=== PATIENT | male | born 1995 | race African-American/Black ===

== ENCOUNTER → 2025-03-03 15:49 | Outpatient (CLI) | payer OTHER, SELFPAY ==
--- NOTE | 2025-03-03 15:54 | DI.MRI.S_ITS ---
PROCEDURE: MR HIP RT W CON INDICATIONS: chronic rt hip pain TECHNIQUE: After the administration of 10 mL of dilute intra-articular Gadolinium contrast, coronal STIR of the bony pelvis; coronal and oblique axial T1 spin echo with fat saturation, axial T2 fast spin echo with fat saturation, sagittal T1 spin echo with and without fat saturation of the involved hip. COMPARISON: None. FINDINGS: Image quality: Diagnostic. Right Hip (small FOV): Intact articular surfaces. Mild increased signal within the superior labrum at 12 o'clock without discrete linear irregularity to suggest tear. This is concerning for mild intrasubstance degeneration. Lumbar spine: Unremarkable. Sacroiliac joints/pubic symphysis: Mild subchondral bone marrow edema at the right synovial sacroiliac joint. The pubic symphysis is unremarkable. The left sacroiliac joint is unremarkable.. Muscles/tendons/bursae: The gluteus minimus and medius tendons are unremarkable. The adductor, hamstring, and iliopsoas tendons are unremarkable. No bursitis. Neurovascular: Unremarkable. Pelvic viscera: Unremarkable, non-dedicated study. Subcutaneous tissues: Iatrogenic changes along the anterior right hip.. IMPRESSION: 1. Mild intrasubstance degeneration without discrete tear of the superior labrum of the right hip. 2. 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 Recommend further evaluation with MRI of the sacroiliac joints. This is a potential cause of the patient's right-sided hip pain. Dictated by: Jonah Mathis M.D. on 03/04/2025 at 7:53 Approved by: Jonah Mathis M.D. on 03/04/2025 at 7:59
--- NOTE | 2025-03-03 15:54 | DI.RAD.S_ITS ---
PROCEDURE: FL ARTHROGRAM HIP RT INDICATIONS: chronic rt hip pain TECHNIQUE: The indications, alternatives, benefits, risks, and complications of the procedure were explained to the patient. Written informed consent was obtained and placed in the chart. The hip was examined fluoroscopically with the legs fixed in slight internal rotation, and a site for needle placement chosen for entry into the hip joint from an anterior approach. Care was taken to locate the common femoral artery and vein beforehand. The skin was prepped and draped in a sterile fashion, and 1% Lidocaine infiltrated from skin down to joint capsule. A spinal needle was inserted into the joint, and a small amount of iodinated contrast media injected to confirm intra-articular placement of the needle tip. This was followed by approximately 10 mL dilute solution of a gadolinium containing MR contrast agent. The needle was removed and a dressing was applied. The patient was given postprocedural instructions and sent to the MR suite for imaging. COMPARISON: None. FINDINGS: A single fluoroscopic spot image demonstrates intra-articular location of injected iodinated contrast. IMPRESSION: Successful fluoroscopically guided administration of dilute Gadolinium solution into the right hip joint for MR arthrogram. Dictated by: Laura Akhtar [facility] WITH [facility] Interpreted: Lucy Farias MD on 03/03/2025 at 16:43 Transcribed by: KRISTIN on 03/03/2025 at 16:43 Approved by: Lucy Farias M.D. on 03/05/2025 at 7:54
[2025-03-03] MEDS: LIDOCAINE 1% 20 ML INJ (16:37)
[2025-03-03] MEDS: SODIUM CHLORIDE 0.9 % 20 ML VIAL IV (16:38)
== END ==
DX: M25.551 Pain in right hip (principal)
CPT/HCPCS: 27093; 73525; 73722; A9579; Q9967